=== PATIENT | female | born 1990 | race Caucasian/White ===

== ENCOUNTER 2016-07-05 08:21 | Emergency (ER) | payer BC ==
[2016-07-05 08:51] LABS: #Basophils 0.1 thou/uL (0.0-0.2); #Eosinphils 0.1 thou/uL (0.0-0.7); #Lymphocytes 2.3 thou/uL (1.20-3.40); #Monocytes 0.4 thou/uL (0.11-0.59); #Neutrophils 2.2 thou/uL (1.40-6.50); %Basophils 1.5 % (0.0-1.0); %Eosinophils 2.7 % (0.0-10.0); %Monocytes 7.6 % (0.0-10.0); Hematocrit 42.9 % (36.0-47.0); Mean Platelet Volume 9.7 fL (7.4-10.4); Red Blood Cell (RBC) Count 4.79 mill/uL (4.20-5.40); White Blood Cell (WBC) Count 5.1 thou/uL (4.8-10.8)
[2016-07-05 09:00] LABS: Bilirubin Negative (Negative); Blood, Urine Negative (Negative); Glucose, Urine (Dipstick) Negative (Negative); Ketone, Urine Negative (Negative); Nitrite Negative (Negative); Protein, Urine (Dipstick) Negative (Neg-Trace); Urobilinogen 0.2 mg/dL (0.2-1.0)
[2016-07-05 09:03] LABS: Anion Gap 13 mmol/L (10-20); BUN (Urea Nitrogen) 10 mg/dL (7.0-18.7); Calc. Creatinine Clearance 0 mL/min (70-130); Calcium 9.2 mg/dL (7.8-10.44); Carbon Dioxide 23 mmol/L (22-29); Chloride 109 mmol/L (98-107); Estimated GFR-MDRD 85
[2016-07-05] MEDS ORDERED: Prochlorperazine 10 MG/2 ML VIAL ONE (09:09)
[2016-07-05] MEDS ORDERED: Ketorolac Tromethamine 30 MG/ML VIAL ONE (09:09)
[2016-07-05] MEDS ORDERED: diphenhydrAMINE HCl 50 MG/ML 1 ML VIAL ONE (09:09)
--- NOTE | 2016-07-05 10:51 | PICIS ---
[facility] EMERGENCY RECORD TRIAGE (MonJul 05, 2016 08:30 KMOR) TRIAGE NOTES: Woke up this morning seeing spots, felt like she had low blood sugar, now has headache. (MonJul 05, 2016 08:30 KMOR) PATIENT: NAME: Tonya Saul, AGE: 26, GENDER: female, : Mon1990, TIME OF GREET: MonJul 05, 2016 08:22, PREFERRED LANGUAGE: [place], ETHNICITY: Not or , ECODE BILLING MAP: [facility], SSN: [id number], Zip Code: [address], KG WEIGHT: 68.95, PHONE: , , , PERSON ID: [id number], PAYMENT: KAMI Gandara, PCP: DO ABAD JOHN SCOTT. (MonJul 05, 2016 08:30 KMOR) COMPLAINT: Headache. (MonJul 05, 2016 08:30 KMOR) ADMISSION: URGENCY: 4 Non Urgent, ADMISSION SOURCE: Home, TRANSPORT: CAR, BED: ER -03. (MonJul 05, 2016 08:30 KMOR) ASSESSMENT: Assessment: A&OX4. RR EVEN AND UNLABORED., Symptoms began 2 hours ago. (08:32 KMOR) PAIN: Patient complains of pain described as, aching, on a scale 0-10 patient rates pain as 6, Location RIGHT SIDE OF HEAD. (08:32 KMOR) SIRS SCORING: Heart Rate 55-109 (0), Temp range 96.8-101.1 (0), respiratory rate 12-24 (0), Mental Status altered: no (0), Infection or Suspected Infection: No. (08:32 KMOR) TRIAGE SCREENING: Patient denies suicidal ideation, Patient denies presence of domestic violence. (08:32 KMOR) LMP: Last menstrual period: 06/14/2016. (08:32 KMOR) PROVIDERS: TRIAGE NURSE: Rula Galaviz RN. (MonJul 05, 2016 08:30 KMOR) VITAL SIGNS: BP 137/89, Pulse 86, Resp 18, Pain 6, O2 Sat 96, on Room Air, Time 07/05/2016 08:30. (08:30 KMOR) KNOWN ALLERGIES No Known Allergies (Unconfirmed) No Known Drug Allergies CURRENT MEDICATIONS (08:58 KMOR) amitriptyline: TABLET : Strength - 10 mg : ORAL Patient Dose: un mg Oral once a day (in the evening). SEROquel: TABLET : Strength - 100 mg : ORAL Patient Dose: unk mg Oral once a day. VITAL SIGNS VITAL SIGNS: BP: 137/89, Pulse: 86, Resp: 18, Pain: 6, O2 sat: 96 on Room Air, Time: 07/05/2016 08:30. (08:30 KMOR) Temp: 97.7 (Oral), Time: 07/05/2016 08:32. (08:32 KMOR) BP: 120/84, Pulse: 74, Resp: 18, Pain: 7, O2 sat: 100 on Room Air, Time: 07/05/2016 09:20. (09:20 AHOO) BP: 126/75, Pulse: 62, Resp: 16, Pain: 0, O2 sat: 100 on Room Air, Time: 07/05/2016 09:30. (09:30 KMOR) &a-1R&a+25V*p+0X*[id number]*c202B*c15G*c2P*p-0X&a-25V&a+1R Name: Tonya Saul : 1990 F26 MedRec: [id number] AcctNum: [id number] Prepared: MonJul 05, 2016 10:48 by Interface Page 1 of 11 pMD [facility] EMERGENCY RECORD BP: 99/62, Pulse: 62, Resp: 16, Temp: 97.6 (Oral), Pain: 0, O2 sat: 100 on Room Air, Time: 07/05/2016 10:17. (10:17 AHOO) NURSING ASSESSMENT: HEADACHE (08:59 KMOR) CONSTITUTIONAL: Patient arrives ambulatory, Gait steady, History obtained from patient, Patient appears comfortable, Patient cooperative, Patient alert, Oriented to person, place and time, Skin warm, Skin dry, Skin normal in color, Mucous membranes pink, Mucous membranes moist, Patient is well-groomed, Patient complains of Headache, Patient reports she woke up with "seeing spots" and feeling light headed, Reports history of migraines. Headaches to right temporal. Reports history of menigitis. PAIN: aching pain, to the right orbit, on a scale 0-10 patient rates pain as 6. HEADACHE: history of migraines, Pain is typical for migraines, Associated with difficulty concentrating, Associated with photophobia. NEURO: Pupils equally round and reactive to light, Left pupil 2 mm in size, Right pupil 2 mm in size, Able to close eyes, Face symmetrical, Speech normal, GCS:, Eye opening: (4) - Spontaneous, Verbal: (5) - Oriented/conversive, Motor: (6) - Obeys commands/Spontaneous, Hand grasps equal, Foot press equal, Associated with, near syncopal episode. ENT: Ear assessment findings include ear normal to inspection, Nasal assessment findings include nose normal to inspection, Sinuses normal, Nasal mucosa normal, Mouth and throat assessment findings include mouth inspection normal, Uvula normal, Tonsils normal, Mucous membranes pink, and moist, Able to swallow, Speech normal. NOTES: Patient tolerated procedure well. NURSING PROCEDURE: DISCHARGE NOTE (10:24 AHOO) DISCHARGE: Patient discharged to home, ambulating without assistance, family driving, accompanied by //partner, Summary of Care printed/ provided, Transition record given to patient, Discharge instructions given to patient, Discharge instructions given to pt spouse, Prescriptions given and instructions on side effects given, Above person(s) verbalized understanding of discharge instructions and follow-up care, Patient treated and evaluated by physician. NURSING PROCEDURE: IV PATIENT IDENITIFIER: Patient actively involved in identification process, Patient's identity verified by patient stating name, Patient's identity verified by patient stating date. (08:40 KMOR) Patient actively involved in identification process, Patient's identity verified by patient stating name, Patient's identity verified by patient stating date, Patient's identity verified by hospital ID cherelle, Patient's identity verified by family member. (10:22 AHOO) &a-1R&a+25V*p+0X*i1551S*c202B*c15G*c2P*p-0X&a-25V&a+1R Name: Tonya Saul : 1990 F26 MedRec: [id number] AcctNum: [id number] Prepared: MonJul 05, 2016 10:48 by Interface Page 2 of 11 pMD [facility] EMERGENCY RECORD IV SITE 1: IV therapy indicated for hydration, IV therapy indicated for medication administration, IV established, to the left antecubital, using a 20 gauge catheter, in one attempt, Saline lock established, Flushed with normal saline (mls): 10cc, Labs drawn at time of placement, labeled in the presence of the patient and sent to lab. (08:40 KMOR) FOLLOW-UP SITE 1: After procedure, 2x3 ensure dressing applied, After procedure, no drainage at IV site, After procedure, no swelling at IV site, After procedure, no redness at IV site. (08:40 KMOR) After procedure, 2x2 dressing applied, After procedure, no drainage at IV site, After procedure, no swelling at IV site, After procedure, no redness at IV site, IV discontinued, due to patient being discharged, catheter intact. (10:22 AHOO) NOTES: Patient tolerated procedure well. (08:40 KMOR) NURSING PROCEDURE: NURSE NOTES (09:48 KMOR) NURSES NOTES: Notes: Warm blankets provided to patient. Patient reports feeling better. NURSING PROCEDURE: URINE COLLECTION (08:45 AHOO) PATIENT IDENTIFIER: Patient actively involved in identification process, Patient's identity verified by patient stating name, Patient's identity verified by patient stating date, Patient's identity verified by hospital ID bracelet, Patient's identity verified by family member. URINE COLLECTION FEMALE: Urine collected by void, output amount (mL) 30, urine pedro in color, and cloudy, sediment noted, Specimen labeled in the presence of the patient and sent to lab. ORDER DETAILS Order Name: Basic Metabolic Panel, Status: Active, Time: 08:36 07/05/2016, User: ADAM, - Ordered for: DO Lemus Matthew, - Entered by: DO Lemus Matthew - MonJul 05, 2016 08:36, - Quantity: 1, Order Name: CBC with Differential, Status: Active, Time: 08:36 07/05/2016, User: ADAM, - Ordered for: DO Lemus Matthew, - Entered by: DO Lemus Matthew - MonJul 05, 2016 08:36, - Quantity: 1, Order Name: Test, Urine (BHCG), Status: Active, Time: 08:38 07/05/2016, User: ADAM, - Ordered for: DO Lemus Matthew, - Entered by: DO Lemus Matthew - Tue Jul 05, 2016 08:38, - Quantity: 1, Order Name: SALINE LOCK, Status: Done, Time: 08:45 07/05/2016, User: DESTINY, - Ordered for: DO Lemus Matthew, &a-1R&a+25V*p+0X*a0516Y*c202B*c15G*c2P*p-0X&a-25V&a+1R Name: Tonya Saul : 1990 F26 MedRec: [id number] AcctNum: [id number] Prepared: MonJul 05, 2016 10:48 by Interface Page 3 of 11 [facility] EMERGENCY RECORD - Entered by: DO Lemus Matthew - allison Jul 05, 2016 08:36, - Quantity: 1, Order Name: Urinalysis w/ Rflx Microscopic, Status: Active, Time: 08:38 07/05/2016, User: ADAM, - Ordered for: DO Lemus Matthew, - Entered by: DO Lemus Matthew - allison Jul 05, 2016 08:38, - Quantity: 1. MEDICATION ADMINISTRATION SUMMARY Drug Name: Toradol injection, Dose Ordered: 30 mg, Route: IV Push, Status: Given, Time: 09:14 07/05/2016, Drug Name: diphenhydrAMINE injection, Dose Ordered: 25 mg, Route: IV Push, Status: Given, Time: 09:12 07/05/2016, Drug Name: Compazine injection, Dose Ordered: 5 mg, Route: IV Push, Status: Given, Time: 09:10 07/05/2016, Drug Name: sodium chloride 0.9 % intravenous, Dose Ordered: 1 L, Route: IV Fluid Infusion, Status: Given, Time: 09:00 07/05/2016, Detailed record available in Medication Service section. MEDICATION SERVICE Compazine injection: Order: Compazine injection (prochlorperazine edisylate) - Dose: 5 mg : IV Push Schedule: Now Ordered by: Viet Reeves DO Entered by: Viet Reeves DO MonJul 05, 2016 09:05 , Acknowledged by: Sophy Ward LVN MonJul 05, 2016 09:07 Documented as given by: Sophy Wadr LVN MonJul 05, 2016 09:10 Patient, Medication, Dose, Route and Time verified prior to administration. Amount given: 5MG, IV SITE #1 IVP, initial medication, Slowly, Awake and alert- acceptable, Catheter placement confirmed via flush prior to administration, IV site without signs or symptoms of infiltration during medication administration, No swelling during administration, No drainage during administration, IV flushed after administration, Correct patient, time, route, dose and medication confirmed prior to administration, Patient advised of actions and side-effects prior to administration, Allergies confirmed and medications reviewed prior to administration, Patient in position of comfort, Side rails up, Cart in lowest position, Family at bedside. : Follow Up : Response assessment performed, No signs or symptoms of allergic reaction noted, Decreased pain, _IV SITE #1:_. (10:10 KMOR) diphenhydrAMINE injection: Order: diphenhydrAMINE injection (diphenhydramine HCl) - Dose: 25 mg : IV Push Schedule: Now Ordered by: Viet Reeves DO Entered by: Viet Reeves DO MonJul 05, 2016 09:05 , Acknowledged by: Sophy Ward LVN MonJul 05, 2016 09:07 Documented as given by: Sophy Ward LVN MonJul 05, 2016 09:12 &a-1R&a+25V*p+0X*f3719J*c202B*c15G*c2P*p-0X&a-25V&a+1R Name: Tonya Saul : 1990 F26 MedRec: [id number] AcctNum: [id number] Prepared: MonJul 05, 2016 10:48 by Interface Page 4 of 11 pMD [facility] EMERGENCY RECORD Patient, Medication, Dose, Route and Time verified prior to administration. Amount given: 25MG, IV SITE #1 IVP, initial medication, Slowly, Awake and alert- acceptable, Catheter placement confirmed via flush prior to administration, IV site without signs or symptoms of infiltration during medication administration, No swelling during administration, No drainage during administration, IV flushed after administration, Correct patient, time, route, dose and medication confirmed prior to administration, Patient advised of actions and side-effects prior to administration, Allergies confirmed and medications reviewed prior to administration, Patient in position of comfort, Side rails up, Cart in lowest position, Family at bedside. : Follow Up : Response assessment performed, No signs or symptoms of allergic reaction noted, Decreased pain, _IV SITE #1:_, decreased pain to 0/10. (10:20 AHOO) sodium chloride 0.9 % intravenous: Order: sodium chloride 0.9 % intravenous (0.9 % sodium chloride) - Dose: 1 L : IV Fluid Infusion Ordered by: Damien Lemus DO Entered by: Damien Lemus DO MonJul 05, 2016 08:38 , Acknowledged by: Rula Galaviz RN MonJul 05, 2016 08:45 Documented as given by: Sophy Ward LVN MonJul 05, 2016 09:00 Patient, Medication, Dose, Route and Time verified prior to administration. Amount given: 1 L, IV SITE #1 IV fluids established for hydration, IV SITE #1 into left antecubital, IV SITE #1 1st bag hung, IV SITE #1 bolus of 1000 ml established, via gravity tubing, Awake and alert- acceptable, Catheter placement confirmed via flush prior to administration, IV site without signs or symptoms of infiltration during medication administration, No swelling during administration, No drainage during administration, IV flushed after administration, Correct patient, time, route, dose and medication confirmed prior to administration, Patient advised of actions and side-effects prior to administration, Allergies confirmed and medications reviewed prior to administration, Patient in position of comfort, Side rails up, Cart in lowest position, Family at bedside. : Follow Up : Response assessment performed, No signs or symptoms of allergic reaction noted, _IV SITE #1:_, IV fluid infusion discontinued, on MonJul 05, 2016 10:00, Total fluid hydration time IV site 1 1 hour, ., Total amount infused: 1000ml, IV Line flushed after administration. (10:10 KMOR) Toradol injection: Order: Toradol injection (ketorolac tromethamine) - Dose: 30 mg : IV Push Schedule: Now Ordered by: Viet Reeves DO Entered by: Viet Reeves DO allison Jul 05, 2016 09:05 , Acknowledged by: Sophy Ward LVN allison Jul 05, 2016 09:07 Documented as given by: Sophy Ward LVN allison Jul 05, 2016 09:14 Patient, Medication, Dose, Route and Time verified prior to administration. &a-1R&a+25V*p+0X*e8669J*c202B*c15G*c2P*p-0X&a-25V&a+1R Name: Tonya Saul : 1990 F26 MedRec: [id number] AcctNum: [id number] Prepared: MonJul 05, 2016 10:48 by Interface Page 5 of 11 pMD [facility] EMERGENCY RECORD Amount given: 30MG, IV SITE #1 IVP, initial medication, Slowly, Awake and alert- acceptable, Catheter placement confirmed via flush prior to administration, IV site without signs or symptoms of infiltration during medication administration, No swelling during administration, No drainage during administration, IV flushed after administration, Correct patient, time, route, dose and medication confirmed prior to administration, Patient advised of actions and side-effects prior to administration, Allergies confirmed and medications reviewed prior to administration, Patient in position of comfort, Side rails up, Cart in lowest position, Family at bedside. : Follow Up : Response assessment performed, No signs or symptoms of allergic reaction noted, Decreased pain, _IV SITE #1:_. (10:10 KMOR) HPI HEADACHE (09:21 JPIP) CHIEF COMPLAINT: Patient presents for evaluation of migraine headache. HISTORIAN: History provided by patient. LOCATION: Symptoms are localized, most severe in the right parietal region. QUALITY: Pain is dull in nature, described as aching. SEVERITY: Maximum severity of pain rated as 6/10. TIME COURSE: Sudden onset of symptoms, Date and time of onset was this AM, There has been no change in the patient's symptoms over time, Symptoms are constant. ASSOCIATED WITH FEMALE: Associated with aura, for 1 hour, No associated chills, No associated fever, No associated neck pain, No associated tingling, No associated numbness, No associated upper respiratory infection, unknown status. EXACERBATED BY: Patient's condition exacerbated by light. RELIEVED BY: Patient's condition relieved by nothing. RISK FACTORS: Subarachnoid hemorrahage risk factor analysis completed. ROS (09:23 JPIP) CONSTITUTIONAL: Historian denies chills, denies fever, denies lethargy. EYES: Historian denies eye pain, denies eye redness, reports photophobia. ENT: Historian denies dysphagia, denies otalgia, denies rhinorrhea, denies sinus pain, denies sore throat. CARDIOVASCULAR: Historian denies chest pain. RESPIRATORY: Historian denies cough, denies shortness of breath. GI: Historian reports nausea, denies vomiting. GENITOURINARY FEMALE: Historian denies dysuria, denies frequency, denies hematuria, denies urgency. ? . MUSCULOSKELETAL: Historian denies arthralgias, denies myalgias, denies neck pain. SKIN: Negative skin review of systems, Historian denies rash, denies skin changes, denies skin lesions. &a-1R&a+25V*p+0X*f4155O*c202B*c15G*c2P*p-0X&a-25V&a+1R Name: Tonya Saul : 1990 F26 MedRec: [id number] AcctNum: [id number] Prepared: MonJul 05, 2016 10:48 by Interface Page 6 of 11 pMD [facility] EMERGENCY RECORD NEUROLOGIC: Historian denies confusion, denies dizziness, denies focal weakness, reports headache, denies lethargy, denies mental status changes, denies paresthesias. NOTES: All systems reviewed, negative except as described above. 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 MENNINGITIS 2012. (08:32 KMOR) FEMALE SURGICAL HISTORY: Surgical history of section. (08:32 KMOR) SOCIAL HISTORY: Patient has no smoking history, Patient denies alcohol use, Patient denies drug use. (08:32 KMOR) FAMILY HISTORY: Family history is non-contributory to this case. (08:32 KMOR) NOTES: Nursing records reviewed, Medication list reviewed. (09:26 JPIP) PHYSICAL EXAM (09:24 JPIP) CONSTITUTIONAL: Vital Signs Reviewed, Patient afebrile, Pulse normal, Blood pressure normal, Respiratory rate normal, Patient appears, in mild pain distress, Patient alert and oriented to person, place and time, Nursing notes reviewed. HEAD: Head exam included findings of head atraumatic, normocephalic. EYES: Eye exam included findings of eyelids normal to inspection, Pupils equally round and reactive to light, Left pupil 4 mm in size, Right pupil 4 mm in size, Extraocular muscles intact, Conjunctiva normal, Sclera normal, no periorbital ecchymosis, no periorbital edema, no periorbital erythema, no nystagmus. ENT: Ear exam normal, external ear normal, tympanic membranes normal, no foreign body, no drainage, no bleeding, Pharynx exam normal, not injected, no swelling, symmetrical, Uvula exam normal, midline, no edema, Mouth exam normal, mucous membranes moist. NECK: Neck exam included findings of normal range of motion, Trachea midline, no meningeal signs, no cervical adenopathy, no tenderness. RESPIRATORY CHEST: Respiratory exam included findings of no respiratory distress, Breath sounds clear, No wheezing, No rales, No rhonchi, Breath sounds not absent, Breath sounds not diminished. CARDIOVASCULAR: Cardiovascular exam included findings of heart rate regular rate and rhythm, Heart sounds normal. ABDOMEN FEMALE: Abdominal exam included findings of abdomen nontender, Liver normal, Spleen normal, no distension, no mass, no pulsatile masses, no peritoneal signs, no rigidity, no guarding, no rebound. UPPER EXTREMITY: Upper extremity exam included findings of inspection normal, Range of motion normal. LOWER EXTREMITY: Lower extremity exam included findings of &a-1R&a+25V*p+0X*z5909F*c202B*c15G*c2P*p-0X&a-25V&a+1R Name: Tonya Saul : 1990 F26 MedRec: [id number] AcctNum: [id number] Prepared: MonJul 05, 2016 10:48 by Interface Page 7 of 11 pMD [facility] EMERGENCY RECORD inspection normal, Range of motion normal. NEURO: Van Lear coma scale 15, Neuro exam findings include patient oriented to person, place and time, Speech normal, Cranial nerves intact, Deep tendon reflexes normal, no focal motor deficits, Babinski's negative, no nystagmus, no clonus, CN II-XII intact. SKIN: Skin exam included findings of skin warm, dry, and normal in color. LYMPHATIC: Lymphatic exam included findings of cervical nodes normal, Submandibular normal. PSYCHIATRIC: Psychiatric exam included findings of patient oriented to person place and time, Normal affect. LAB INTERPRETATION (09:26 JPIP) INTERPRETATION: I reviewed the lab results, All labs normal except as noted below, No clinically significant lab abnormalities, CBC normal, Chemistry abnormal, Chloride elevated, Urinalysis normal, Urine HCG negative. EVENTS TRANSFER: Triage to Emergency Emergency Room -03. (MonJul 05, 2016 08:30 KMOR) Removed from Emergency Emergency Room -03. (10:35 AHOO) O2SAT INTERPRETATION (08:55 JPIP) O2SAT: Continuous pulse oximetry, Oxygen saturation 96%, on room air, Oxygen saturation interpretation: Normal, No intervention required. DOCTOR NOTES RE-EVALUATION: Routine re-evaluation, after administration of antiemetics, Routine re-evaluation, after administration of IV fluids, The patient's condition has improved, feeling better. (09:46 JPIP) The patient's condition has improved, states 0/10 pain and wants to go home. (10:13 JPIP) PROBLEM LIST No recorded problems DIAGNOSIS (10:14 JPIP) FINAL: PRIMARY: Migraine (unspecified). DISPOSITION PATIENT: Disposition Type: Discharge, Disposition: *Discharge Home, Condition: Good. (10:14 JPIP) Patient left the department. (10:35 AHOO) INSTRUCTION (10:14 JPIP) DISCHARGE: MIGRAINE HEADACHE. &a-1R&a+25V*p+0X*n4182E*c202B*c15G*c2P*p-0X&a-25V&a+1R Name: Tonya Saul Abiodun : 1990 F26 MedRec: [id number] AcctNum: [id number] Prepared: MonJul 05, 2016 10:48 by Interface Page 8 of 11 pMD [facility] EMERGENCY RECORD FOLLOWUP: DO ABAD JOHN SCOTT, [facility], [address] [place] [address], . SPECIAL: Follow up with Primary Care Physician within 72 hours Return to the Emergency Department for increased symptoms problems or concerns. PRESCRIPTION Compazine tablet: TABLET : 10 mg : ORAL : Quantity: 1 Unit: tab(s) Route: ORAL Schedule: every 8 hours PRN Dispense: 20 May substitute. Refills: No Refills . (09:49 JPIP) NOTES: take at onset of headache with the diphenhydramine No refills. (09:49 JPIP) Compazine tablet: TABLET : 10 mg : ORAL : Quantity: 1 Unit: tab(s) Route: ORAL Schedule: every 8 hours PRN Dispense: 30 May substitute. Refills: No Refills . (09:50 JPIP) NOTES: take for nausea or take at onset of headache No refills. (09:50 JPIP) diphenhydrAMINE oral: TABLET : 50 mg : ORAL : Quantity: 1 Unit: tab(s) Route: ORAL Schedule: every 8 hours PRN Dispense: 20 May substitute. Refills: No Refills . (09:50 JPIP) NOTES: Take with the compazine at the onset of a headache. No refills. (09:50 JPIP) IMAGING (10:31 OO) *DISCHARGE INSTRUCTIONS RECEIPT: Image captured from scanner. *SUPPLY CHARGE SHEET: Image captured from scanner. RESULTS LABORATORY: CBC with Differential Collection DT: MonJul 05, 2016 08:50, White Blood Cell (WBC) Count 5.1 thou/uL, Range (4.8-10.8), Red Blood Cell (RBC) Count 4.79 mill/uL, Range (4.20-5.40), Hemoglobin 14.4 g/dL, Range (12.0-16.0), Hematocrit 42.9 %, Range (36.0-47.0), Mean Corpuscular Volume 89.6 fl, Range (81.0-99.0), Mean Corpuscular Hemoglobin 30.1 pg, Range (27.0-31.0), Mean Corpuscular HGB CONC 33.6 g/dL, Range (32.0-36.0), RBC Distribution Width 11.8 %, Range (11.5-14.5), Platelet Count 184 thou/uL, Range (130-400), Mean Platelet Volume 9.7 fL, Range (7.4-10.4), %Neutrophils 43.2 %, Range (42.0-75.0), %Lymphocytes 45.1 %, Range (21.0-51.0), %Monocytes 7.6 %, Range (0.0-10.0), %Eosinophils 2.7 %, Range (0.0-10.0), *%Basophils 1.5 - H %, Range (0.0-1.0), #Neutrophils 2.2 thou/uL, Range (1.40-6.50), &a-1R&a+25V*p+0X*u3803G*c202B*c15G*c2P*p-0X&a-25V&a+1R Name: Tonya Saul : 1990 F26 MedRec: [id number] AcctNum: [id number] Prepared: MonJul 05, 2016 10:48 by Interface Page 9 of 11 pMD [facility] EMERGENCY RECORD #Lymphocytes 2.3 thou/uL, Range (1.20-3.40), #Monocytes 0.4 thou/uL, Range (0.11-0.59), #Eosinphils 0.1 thou/uL, Range (0.0-0.7), #Basophils 0.1 thou/uL, Range (0.0-0.2). (08:54 [facility] [place] [place]) Urinalysis w/ Rflx Microscopic Collection DT: MonJul 05, 2016 09:00, Color Yellow , Range (Yellow), Clarity Cloudy , Range (Clear), Specific Jackson, Urine 1.020 , Range (1.005-1.030), pH, Urine 7.0 , Range (5.0-9.0), Leukocyte Negative , Range (Negative), Nitrite Negative , Range (Negative), Protein, Urine (Dipstick) Negative mg/dL, Range (Neg-Trace), Glucose, Urine (Dipstick) Negative mg/dL, Range (Negative), Ketone, Urine Negative mg/dL, Range (Negative), Urobilinogen 0.2 mg/dL, Range (0.2-1.0), Bilirubin Negative , Range (Negative), Blood, Urine Negative , Range (Negative). (: [facility] [place] [place]) Basic Metabolic Panel Collection DT: MonJul 05, 2016 08:50, Sodium 141 mmol/L, Range (136-145), Potassium 3.9 mmol/L, Range (3.5-5.1), *Chloride 109 - H mmol/L, Range (98-107), Carbon Dioxide 23 mmol/L, Range (22-29), Anion Gap 13 mmol/L, Range (10-20), BUN (Urea Nitrogen) 10 mg/dL, Range (7.0-18.7), Creatinine 0.81 mg/dL, Range (0.6-1.1), Estimated GFR-MDRD 85 , Reference Range for Estimated GFR: Greater than 90, mL/min/1.73 m2 NOTE: The MDRD equation has not been validated for use, with the elderly (over 70 years of age), women, patients with, serious comorbid condition or persons with extremes of body size, muscle, mass, or nutritional status. , Glucose 92 mg/dL, Range (70-105), Calcium 9.2 mg/dL, Range (7.8-10.44). (: [facility] [place]) Test, Urine (BHCG) Collection DT: MonJul 05, 2016 09:00, Test - Urine (BHCG) NEGATIVE , Range (NEGATIVE), Method of sensitivity- Indeterminant: results should be repeated, after 48 hours. Positive: results may be detected as early as 4-5 days before a first missed menses. Elimination of BHCG-, Elimination following first trimester D&C: 29-44 Days , Elimination following term : 8-24 Days , Specific Jackson 1.020 , Range (1.002-1.036), A dilute urine specimen may, not contain warehouse representative &a-1R&a+25V*p+0X*[id number]*c202B*c15G*c2P*p-0X&a-25V&a+1R Name: Tonya Saul : 1990 6 MedRec: [id number] AcctNum: [id number] Prepared: MonJul 05, 2016 10:48 by Interface Page 10 of 11 pMD [facility] RECORD levels of hCG. If is still, suspected, a first morning urine specimen OR a random blood specimen should, be obtained from the patient 48-72 hours later and re-tested. , . (09:27 [facility] [place]) Maria: AHOO=MERE Ward, August JPIP=DO Reeves Joseph KMOR=KEITH Galaviz, Rula MBRI=DO Lemus Matthew &a-1R&a+25V*p+0X*[id number]*c202B*c15G*c2P*p-0X&a-25V&a+1R Name: Tonya Saul : 1990 6 MedRec: [id number] AcctNum: [id number] Prepared: MonJul 05, 2016 10:48 by Interface Page 11 of 11 pMD MTDD
== END 2016-07-05 10:24 | disposition home or self-care (01) ==
LOC: BURERS 08:21
DX: G43.909 Migraine, unspecified, not intractable, without status migrainosus (principal)
CPT/HCPCS: 80048; 81003; 81025; 85025; 96361; 96374; 96375; J0780; J1200; J1885